=== PATIENT | female | born 1960 | race Caucasian/White ===

== ENCOUNTER 2021-08-09 19:15 | Emergency (ER) | payer SELFPAY ==
[~2021-08-09] VITALS: Ht 152.4 cm; Wt 63.0 kg
--- NOTE | 2021-08-09 19:41 | NUR ---
ROBERT INCIDENT NUMBER [id number]
[2021-08-09] MEDS ORDERED: TDAP [DIPH/PERTUSSIS/TET] 0.5 ML VIAL IM ONE (20:01)
[2021-08-09] MEDS: TDAP [DIPH/PERTUSSIS/TET] 0.5 ML VIAL IM ONE (20:16)
[2021-08-09] MEDS ORDERED: BACI30OI9 TP (20:35)
[2021-08-09] MEDS ORDERED: ACET-2605 PO (20:35)
--- NOTE | 2021-08-09 21:33 | NUR ---
Patient discharged to home in stable condition. Written and verbal after care instructions given. Patient verbalizes understanding of instruction.
[2021-08-09 21:35] VITALS: BP 133/80
== END 2021-08-09 21:35 | disposition home or self-care (01) ==
LOC: ER 19:18
DX: S00.11XA Contusion of right eyelid and periocular area, initial encounter (principal); S60.511A Abrasion of right hand, initial encounter; R51.9 Headache, unspecified; I10 Essential (primary) hypertension; Y04.0XXA Assault by unarmed brawl or fight, initial encounter; Y93.89 Activity, other specified; Y92.89 Other specified places as the place of occurrence of the external cause; Y99.8 Other external cause status
CPT/HCPCS: 70450-TC; 70486-TC; 72125-TC; 73130-TC; 90715

== ENCOUNTER 2021-12-07 01:20 | Emergency (ER) | payer MEDICARE ==
[~2021-12-07] VITALS: Ht 152.4 cm; Wt 63.5 kg
[~2021-12-07 01:20] MED LIST: ACET-2605 PO; BACI30OI9 TP
--- NOTE | 2021-12-07 01:36 | NUR ---
PT [id number]. C/O NECK PAIN X 1 WEEK;08/12. PLACED IN BED 12 ON MONITOR AND PULSE OX. AWAITING ER MD FOR EVAL AND ORDERS.
[2021-12-07] MEDS ORDERED: HYDROCODONE/APAP 5/325MG TABLET ONE (01:55)
[2021-12-07] MEDS ORDERED: HYDROCODONE/APAP 5/325MG TABLET PO ONE (02:00)
--- NOTE | 2021-12-07 02:04 | NUR ---
BROUGHT TO CT
[2021-12-07] MEDS ORDERED: PRED50TA PO (03:31)
[2021-12-07] MEDS ORDERED: CYCL10TA9 PO (03:31)
[2021-12-07] MEDS ORDERED: IBUPROFEN 400 MG TABLET ONE (03:38)
--- NOTE | 2021-12-07 03:43 | NUR ---
Patient discharged to home in stable condition. Written and verbal after care instructions given. Patient verbalizes understanding of instruction.
[2021-12-07 03:44] VITALS: BP 148/76
[2021-12-07] MEDS ORDERED: IBUPROFEN 400 MG TABLET PO ONE (04:00)
== END 2021-12-07 03:44 | disposition home or self-care (01) ==
LOC: ER 01:23
DX: M50.30 Other cervical disc degeneration, unspecified cervical region (principal); M50.20 Other cervical disc displacement, unspecified cervical region; I10 Essential (primary) hypertension; Z79.899 Other long term (current) drug therapy
CPT/HCPCS: 70490-TC

== ENCOUNTER 2022-04-02 19:16 | Emergency (ER) | payer MEDICARE, OTHER ==
[~2022-04-02] VITALS: Ht 152.4 cm; Wt 74.8 kg
[~2022-04-02 19:16] MED LIST changes: +CYCL10TA9 PO; +PRED50TA PO
[2022-04-02 19:28] VITALS: BP 149/86
[2022-04-02] MEDS ORDERED: FAMO-131 PO (19:48)
[2022-04-02] MEDS ORDERED: PRED50TA PO (19:48)
[2022-04-02] MEDS ORDERED: FAMOTIDINE (20 MG) 20 MG TABLET PO ONE (20:00)
[2022-04-02] MEDS ORDERED: predniSONE 10 MG TABLET PO ONE (20:00)
[2022-04-02] MEDS ORDERED: diphenhydrAMINE HCL 50 MG CAPSULE PO ONE (20:00)
[2022-04-02] MEDS ORDERED: diphenhydrAMINE HCL 50 MG CAPSULE ONE (20:05)
[2022-04-02] MEDS ORDERED: FAMOTIDINE (20 MG) 20 MG TABLET ONE (20:05)
[2022-04-02] MEDS ORDERED: predniSONE 20 MG TABLET ONE (20:05)
--- NOTE | 2022-04-02 20:09 | NUR ---
Patient discharged to home in stable condition. Written and verbal after care instructions given. Patient verbalizes understanding of instruction. Pt ambulatory with a steady gait
== END 2022-04-02 19:55 | disposition home or self-care (01) ==
LOC: ER 19:20
DX: B00.1 Herpesviral vesicular dermatitis (principal); I10 Essential (primary) hypertension; M06.9 Rheumatoid arthritis, unspecified; Z60.2 Problems related to living alone; Z79.899 Other long term (current) drug therapy
CPT/HCPCS: 99284; J7512 ×2; Q0163

== ENCOUNTER 2022-08-20 20:26 | Emergency (ER) | payer MEDICARE, OTHER ==
[~2022-08-20] VITALS: Ht 152.4 cm; Wt 70.3 kg
[~2022-08-20 20:26] MED LIST changes: +FAMO-131 PO
[2022-08-20 20:35] VITALS: BP 145/84
[2022-08-20] MEDS ORDERED: GUAI5LIQ10 PO (21:01)
[2022-08-20] MEDS ORDERED: IBUP-1955 PO (21:02)
== END 2022-08-20 21:15 | disposition home or self-care (01) ==
LOC: ER 20:28
DX: J02.9 Acute pharyngitis, unspecified (principal); R05.9 Cough, unspecified; I10 Essential (primary) hypertension; Z79.899 Other long term (current) drug therapy

== ENCOUNTER 2022-10-19 14:40 | Emergency (ER) | payer MEDICARE, OTHER ==
[~2022-10-19] VITALS: Ht 152.4 cm; Wt 70.3 kg
[~2022-10-19 14:40] MED LIST changes: +GUAI5LIQ10 PO; +IBUP-1955 PO
--- NOTE | 2022-10-19 14:55 | NUR ---
"PAIN ON L SIDE WHEN I TAKE A DEEP BREATH" x 4DAYS
[2022-10-19] MEDS ORDERED: ALBUTEROL FS 2.5 MG/3 ML VIAL.NEB NEB ONE (16:00)
[2022-10-19] MEDS ORDERED: CEFTRIAXONE 1GM BAG (ER ONLY) 50 ML IV ONE (16:00)
[2022-10-19] MEDS ORDERED: AZITHROMYCIN 500 MG in IV D5W 250 ML IV ONE (16:00)
[2022-10-19] MEDS ORDERED: IPRATROPIUM NEB FS 0.5 MG/2.5 ML AMPUL.NEB NEB ONE (16:00)
[2022-10-19] MEDS ORDERED: ALBUTEROL FS 2.5 MG/3 ML VIAL.NEB ONE (16:14)
[2022-10-19] MEDS ORDERED: IPRATROPIUM NEB FS 0.5 MG/2.5 ML AMPUL.NEB ONE (16:14)
--- NOTE | 2022-10-19 16:20 | NUR ---
established iv line at right ac 20g
--- NOTE | 2022-10-19 16:20 | NUR ---
covid and influenza swab taken
--- NOTE | 2022-10-19 16:20 | NUR ---
blood sample obtained sent to lab
[2022-10-19 16:33] LABS: BASOPHILS # (AUTO) 0.1 K/uL (0.0-0.2); BASOPHILS % (AUTO) 0.8 % (0.0-2.0); EOSINOPHILS % (AUTO) 5.4 % (0.0-6.0); HEMATOCRIT 39 % (33-45); HEMOGLOBIN 12.6 g/dL (11.5-14.8); LYMPHOCYTES # (AUTO) 2.1 K/uL (0.8-4.8); LYMPHOCYTES % (AUTO) 27.6 % (20.0-44.0); MEAN CORPUSCULAR HGB CONC 33 g/dl (31.0-36.0); MEAN CORPUSCULAR VOLUME 96 fL (82-100); MONOCYTES # (AUTO) 0.6 K/uL (0.1-1.30); MONOCYTES % (AUTO) 8.2 % (2.0-12.0); NEUTROPHILS # (AUTO) 4.3 K/uL (1.8-8.9); PLATELET COUNT (AUTO) 270 K/uL (150-450); RED BLOOD CELL COUNT(AUTO) 4.02 MIL/uL (4.0-5.2); WHITE BLOOD COUNT (AUTO) 7.4 K/uL (4.3-11.0)
[2022-10-19 16:56] LABS: CALCIUM, SERUM 8.6 mg/dL (8.5-10.1); CREATININE 0.7 mg/dL (0.6-1.3); POTASSIUM 3.6 mmol/L (3.5-5.1)
[2022-10-19] MEDS ORDERED: AZIT500T PO (17:58)
[2022-10-19] MEDS ORDERED: ALBU8.5H8 INH (17:58)
--- NOTE | 2022-10-19 19:39 | NUR ---
Patient discharged to home in stable condition. Written and verbal after care instructions given. Patient verbalizes understanding of instruction. PT was provided with taxi voucher
[2022-10-19 22:36] VITALS: BP 111/65
== END 2022-10-19 19:39 | disposition home or self-care (01) ==
LOC: ER 14:51
DX: J40 Bronchitis, not specified as acute or chronic (principal); Z20.822 Contact with and (suspected) exposure to COVID-19; Z59.01 Sheltered homelessness; I10 Essential (primary) hypertension; G62.9 Polyneuropathy, unspecified; B00.9 Herpesviral infection, unspecified; Z79.899 Other long term (current) drug therapy; R06.02 Shortness of breath
CPT/HCPCS: 99285; 96365; 71045; 96366; 87426; 96368; 93005; 87804; 84145; 85025; 80048; 87040 ×2; 36415; 83880; 94640; J0456; J0696; C9803; J7060